=== PATIENT | female | born 1930 | race Caucasian/White ===

== ENCOUNTER 2016-11-24 21:58 | Emergency (ER) | payer MEDICARE, OTHER ==
[~2016-11-24] VITALS: Ht 149.9 cm; Wt 50.4 kg
[2016-11-24 22:19] VITALS: Ht 149.9 cm; Wt 50.4 kg
--- NOTE | 2016-11-25 01:16 | ERA ---
ER Documentation Chief Complaint Date/Time DATE: 11/25/16 TIME: 01:13 Chief Complaint N/V AND DIARRHEA DENIES AP HPI The patient is a 86-year-old female, presenting to the ER because of vomiting and diarrhea for the last 2 days. she was seen by her physician yesterday who prescribed her Cipro. She denies fever, chills, neck pain, chest pain, dyspnea , abdominal pain, dysuria. She denies any recent traveling, denies smoking or drinking Past medical history: Hypertension Past surgical history: Cholecystectomy, appendectomy ROS All systems reviewed and are negative except as per history of present illness. Medications Home Meds Active Scripts Ondansetron (Ondansetron Odt) 4 Mg Tab.rapdis, 4 MG PO Q6H Y for NAUSEA AND/OR VOMITING, #10 TAB Prov:VERONIQUE SINCLAIR MD 11/25/16 Reported Medications Alendronate Sodium* (Fosamax*) 70 Mg Tablet, 70 MG PO, #4 TAB 11/25/16 Losartan Potassium* (Losartan Potassium*) 50 Mg Tablet, 50 MG PO DAILY, TAB 11/25/16 Diltiazem Hcl* (Cardizem LA*) 120 Mg Tab.sr.24h, 120 MG PO DAILY, #30 TAB.SA 11/25/16 Alprazolam* (Alprazolam*) 0.25 Mg Tablet, 0.25 MG PO Q8, TAB 11/25/16 Calcium Carbonate (CALCIUM) 600 Mg Tablet, 600 MG PO TID, TAB 11/25/16 Gabapentin* (Gabapentin*) 100 Mg Capsule, 200 MG PO DAILY, #180 CAP 11/25/16 Allergies Allergies: Coded Allergies: No Known Allergy (Unverified , 11/25/16) PMhx/Soc Hx Alcohol Use: No Hx Substance Use: No Hx Tobacco Use: No Physical Exam Vitals Vital Signs Date Time Temp Pulse Resp B/P Pulse Ox O2 Delivery O2 Flow Rate FiO2 11/24/16 22:19 99.1 82 18 133/72 97 Physical Exam Const: No acute distress. Head: Atraumatic. Eyes: Normal Conjunctiva. ENT: Normal External Ears, Nose and Mouth. Neck: Full range of motion. No meningismus. Resp: Clear to auscultation bilaterally. Cardio: Regular rate and rhythm, no murmurs. Abd: Soft, non distended, normal bowel sounds, non tender. Skin: No petechiae or rashes. Back: No midline or flank tenderness. Ext: No cyanosis, or edema. Neur: Awake and alert. No focal deficit Psych: Normal Mood and Affect. Result Diagram: 11/25/16 0055 11/25/16 0055 Results 24 hrs Laboratory Tests Test 11/25/16 00:55 11/25/16 02:10 White Blood Count 6.910^3/ul Red Blood Count 4.7710^6/ul Hemoglobin 13.8g/dl Hematocrit 42.1% Mean Corpuscular Volume 88.3fl Mean Corpuscular Hemoglobin 28.9pg Mean Corpuscular Hemoglobin Concent 32.8g/dl Red Cell Distribution Width 14.2% Platelet Count 14746^3/UL Mean Platelet Volume 10.4fl Neutrophils % 55.3% Lymphocytes % 30.6% Monocytes % 13.4% Eosinophils % 0.0% Basophils % 0.6% Nucleated Red Blood Cells % 0.0/100WBC Neutrophils # 3.810^3/ul Lymphocytes # 2.110^3/ul Monocytes # 0.910^3/ul Eosinophils # 0.010^3/ul Basophils # 0.010^3/ul Nucleated Red Blood Cells # 0.010^3/ul Sodium Level 145mmol/L Potassium Level 3.7mmol/L Chloride Level 110mmol/L Carbon Dioxide Level 23mmol/L Anion Gap 16 Blood Urea Nitrogen 25mg/dl Creatinine 1.15mg/dl Glucose Level 129mg/dl Calcium Level 8.6mg/dl Total Bilirubin 0.3mg/dl Direct Bilirubin 0.00mg/dl Indirect Bilirubin 0.3mg/dl Aspartate Amino Transf (AST/SGOT) 53IU/L Alanine Aminotransferase (ALT/SGPT) 66IU/L Alkaline Phosphatase 107IU/L Total Protein 8.0g/dl Albumin 5.0g/dl Globulin 3.00g/dl Albumin/Globulin Ratio 1.66 Lipase 100U/L Bedside Urine pH (LAB) 5.5 Bedside Urine Protein (LAB) 2+ Bedside Urine Glucose (UA) Negative Bedside Urine Ketones (LAB) Negative Bedside Urine Blood 1+ Bedside Urine Nitrite (LAB) Negative Bedside Urine Leukocyte Esterase (L Trace Current Medications Medications (Trade) Dose Ordered Sig/[place] Route PRN Reason Start Time Stop Time Status Last Admin Dose Admin Ondansetron HCl (Zofran Inj) 4 mg ONCE STAT IV 11/25/16 01:32 11/25/16 01:34 DC 11/25/16 01:49 Loperamide HCl (Imodium Cap) 4 mg ONCE ONCE PO 11/25/16 02:00 11/25/16 02:01 DC 11/25/16 01:49 Procedures/MDM MEDICAL MAKING DECISION: The patient is a 86-year-old female, presenting with vomiting diarrhea. She remains well in the emergency department. He was treated with Zofran ODT and Imodium with good response The differential diagnoses considered include but are not limited to cholelithiasis, cholecystitis, cystitis, pancreatitis, hepatitis, gastritis, peptic ulcer disease, gastric ulcer, appendicitis, diverticulitis, cholangitis, choledocholithiasis, partial small bowel obstruction. Departure Diagnosis: Primary Impression: Vomiting and diarrhea Condition: Good Comments I discussed the findings with the patient. I advised the patient to follow-up with the primary physician in about 1-2 days, sooner if needed and return if any concern. She was discharged with Zofran LUCAT VERONIQUE SINCLAIR MD November 25, 2016 01:16
[2016-11-25] MEDS ORDERED: ONDANSETRON 4 MG INJ IV STA (01:32)
[2016-11-25] MEDS ORDERED: LOPERAMIDE 2 MG CAP PO ONE (02:00)
[2016-11-25 02:04] LABS: ADD SCAN DIFF NO
[2016-11-25 02:07] LABS: BASOPHILS % 0.6 % (0.0-2.0); HEMATOCRIT 42.1 % (37.0-47.0); HEMOGLOBIN 13.8 g/dl (12.0-16.0); LYMPHOCYTES # 2.1 10^3/ul (0.8-2.9); LYMPHOCYTES % 30.6 % (15.0-51.0); MEAN CORPUSCULAR HEMOGLOBIN 28.9 pg (29.0-33.0); MEAN CORPUSCULAR HGB CONC 32.8 g/dl (32.0-37.0); MEAN CORPUSCULAR VOLUME 88.3 fl (82.0-101.0); MEAN PLATELET VOLUME 10.4 fl (7.4-10.4); MONOCYTE # 0.9 10^3/ul (0.3-0.9); MONOCYTES % 13.4 % (0.0-11.0); NEUTROPHIL # 3.8 10^3/ul (1.6-7.5); NEUTROPHILS % 55.3 % (39.0-77.0); PLATELET COUNT 366 10^3/UL (140-415); RED BLOOD COUNT 4.77 10^6/ul (4.20-5.40); RED CELL DISTRIBUTION WIDTH 14.2 % (11.5-14.5); WHITE BLOOD COUNT 6.9 10^3/ul (4.8-10.8)
[2016-11-25 02:08] LABS: URINE BLOOD (Dip) POC 1+ (NEGATIVE)
[2016-11-25] MEDS ORDERED: CALC600T5 PO (02:19)
[2016-11-25] MEDS ORDERED: ALPR0.254 PO (02:19)
[2016-11-25] MEDS ORDERED: GABA100C14 PO (02:19)
[2016-11-25] MEDS ORDERED: ALEN70TA30 PO (02:19)
[2016-11-25] MEDS ORDERED: LOSA50TA6 PO (02:19)
[2016-11-25] MEDS ORDERED: DILT120T PO (02:19)
[2016-11-25 02:30] LABS: POTASSIUM 3.7 mmol/L (3.5-5.1)
[2016-11-25 02:32] LABS: ALBUMIN/GLOBULIN RATIO 1.66; BILIRUBIN,INDIRECT 0.3 mg/dl (0-1.1); BILIRUBIN,TOTAL 0.3 mg/dl (0.2-1.3); CREATININE 1.15 mg/dl (0.44-1.00)
[2016-11-25 02:33] LABS: CALCIUM 8.6 mg/dl (8.4-10.2)
[2016-11-25] MEDS ORDERED: ONDA4TAB14 PO (02:59)
[2016-11-25 03:20] VITALS: BP 160/76; PULSE 69; RESP 18
== END 2016-11-25 03:20 | disposition home or self-care (01) ==
LOC: E/R 21:58
DX: R11.10 Vomiting, unspecified (principal); R19.7 Diarrhea, unspecified; I10 Essential (primary) hypertension
CPT/HCPCS: 36415; 80053; 81003; 82270; 83690; 85025; 87045; 87205; 96374; 99284; J2405

== ENCOUNTER 2019-02-18 08:13 | Emergency (ER) | payer MEDICARE, OTHER ==
[~2019-02-18] VITALS: Ht 154.9 cm; Wt 60.0 kg
[~2019-02-18 08:13] MED LIST: ALEN70TA5 PO; ALPR0.254 PO; ASPI-535 PO; ATOR10TA65 PO; CALC600T5 PO; CALCIUM CARBONATE PO; DILT120C97 PO; DILT120T PO; GABA100C14 PO; LOSA50TA14 PO; OMEP20CA16 PO; ONDA4TAB14 PO
[2019-02-18 08:16] VITALS: Ht 154.9 cm; Wt 60.0 kg
[2019-02-18] MEDS ORDERED: SOD CHLORIDE 0.9% 500 ML IV ONE (10:00)
[2019-02-18] MEDS ORDERED: SOD CHLORIDE 0.9% 100 ML ONE (10:00)
[2019-02-18] MEDS ORDERED: IOHEXOL 100 ML ONE (10:00)
[2019-02-18 12:20] VITALS: BP 171/85; PULSE 85; RESP 20
== END 2019-02-18 12:20 | disposition home or self-care (01) ==
LOC: E/R 08:13
DX: R42 Dizziness and giddiness (principal); I10 Essential (primary) hypertension; R40.2142 Coma scale, eyes open, spontaneous, at arrival to emergency department; R40.2362 Coma scale, best motor response, obeys commands, at arrival to emergency department; R40.2252 Coma scale, best verbal response, oriented, at arrival to emergency department; Z79.82 Long term (current) use of aspirin
CPT/HCPCS: 36415; 70450; 70496; 70498; 71045; 80048; 84484; 85025; 85610; 85730; 93005; 99285; J7040; Q9967